=== PATIENT | female | born 1980 | race Caucasian/White ===

== ENCOUNTER 2020-05-02 18:38 | Emergency (ER) | payer OTHER ==
[~2020-05-02] VITALS: Ht 160 cm; Wt 126.0 kg
[2020-05-02] MEDS ORDERED: BREO1INH3 PO (18:59)
[2020-05-02] MEDS ORDERED: SING10TA32 PO (18:59)
[2020-05-02] MEDS ORDERED: PROT1TAB2 PO (18:59)
[2020-05-02] MEDS ORDERED: FLON1SPR NARES (18:59)
[2020-05-02] MEDS ORDERED: NS 1,000 ML IV ONE (19:20)
[2020-05-02] MEDS ORDERED: ACETAMINOPHEN 500 MG TAB PO ONE (19:20)
[2020-05-02] MEDS ORDERED: ISOVUE-370 76% 100ML VIAL As Ordered ONE (20:10)
[2020-05-02 20:11] LABS: BASO # 0.1 10^3/uL (0.0-0.2); BASO % 0.5 % (0.0-1.0); EOS # 0.1 10^3/uL (0.0-0.5); EOS % 0.5 % (0.0-3.0); HEMATOCRIT 34.4 % (36.0-47.0); HEMOGLOBIN 10.3 g/dl (12.0-15.5); LYMPH # 2.3 10^3/uL (1.5-5.0); LYMPH % 13.7 % (24.0-44.0); MEAN CORPUSCULAR HEMOGLOBIN 22.3 pg (27.0-33.0); MEAN CORPUSCULAR HGB CONC 29.9 g/dl (32.0-36.5); MEAN CORPUSCULAR VOLUME 74.5 fl (80.0-96.0); MONO # 0.7 10^3/uL (0.0-0.8); MONO % 4.4 % (2.0-8.0); NEUTROPHILS # 13.4 10^3/uL (1.5-8.5); NEUTROPHILS % 80.4 % (36.0-66.0); PLATELET COUNT, AUTOMATED 454 10^3/uL (150-450); RED BLOOD COUNT 4.62 10^6/uL (4.00-5.40); WHITE BLOOD COUNT 16.7 10^3/uL (4.0-10.0)
[2020-05-02] MEDS ORDERED: MORPHINE 4 MG/ML 1ML VIAL/SYRINGE (J2270) IV ONE ×2 (20:30→21:45)
[2020-05-02 20:35] LABS: ALBUMIN 3.3 GM/DL (3.2-5.2); ALT/SGPT 16 U/L (12-78); BILIRUBIN,DIRECT < 0.1 MG/DL (0.0-0.2); BILIRUBIN,TOTAL 0.2 MG/DL (0.2-1.0); C REACTIVE PROTEIN QUANTITATIV 1.57 MG/DL (0.00-0.30); TOTAL PROTEIN 6.7 GM/DL (6.4-8.2)
--- NOTE | 2020-05-02 21:24 | REPVR ---
PROCEDURE INFORMATION: Exam: CT Abdomen And Pelvis With Contrast Exam date and time: 05/02/2020 8:13 PM Age: 39 years old Clinical indication: Pain; Other: Low back; Additional info: [facility] yest, RO abscess TECHNIQUE: Imaging protocol: Computed tomography of the abdomen and pelvis with contrast. Radiation optimization: All CT scans at this facility use at least one of these dose optimization techniques: automated exposure control; mA and/or kV adjustment per patient size (includes targeted exams where dose is matched to clinical indication); or iterative reconstruction. Contrast material: ISOVUE 370; Contrast volume: 100 ml; Contrast route: INTRAVENOUS (IV); COMPARISON: No relevant prior studies available. FINDINGS: Liver: Normal. No mass. Gallbladder and bile ducts: Normal. No calcified stones. No ductal dilation. Pancreas: Normal. No ductal dilation. Spleen: Normal. No splenomegaly. Adrenal glands: Normal. No mass. Kidneys and ureters: Nonobstructing calyceal stone in the right kidney. No other urinary tract calculi. No hydronephrosis or renal masses. Stomach and bowel: Changes from prior bariatric surgery are noted. Colon and small bowel are unremarkable. Appendix: No evidence of appendicitis. Intraperitoneal space: Unremarkable. No free air. No significant fluid collection. Vasculature: Unremarkable. No abdominal aortic aneurysm. Lymph nodes: Unremarkable. No enlarged lymph nodes. Urinary bladder: Unremarkable as visualized. Reproductive: There is an IUD in the uterus. Uterus and adnexa are unremarkable. Bones/joints: There are degenerative changes in the spine and pelvis. Soft tissues: Unremarkable. IMPRESSION: 1. No acute findings. 2. Nonobstructing calyceal stone in the right kidney. No hydronephrosis. Electronically signed by: Fredis Guerra On 05/02/2020 21:25:05 PM
[2020-05-02 21:26] LABS: ERYTHROCYTE SEDIMENTATION RATE 44 mm/hr (0-20)
[2020-05-02] MEDS ORDERED: PERC5TAB12 PO (21:48)
[2020-05-02] MEDS ORDERED: OXYCODONE/APAP 5MG/325MG(BULK FOR ED) 1 TABLET PO ONE (21:50)
[2020-05-02 22:13] VITALS: BP 146/90
== END 2020-05-02 22:15 | disposition home or self-care (01) ==
LOC: M ED 18:38
DX: G89.29 Other chronic pain (principal); M54.5 Low back pain; N20.0 Calculus of kidney; I10 Essential (primary) hypertension; D64.9 Anemia, unspecified; J45.909 Unspecified asthma, uncomplicated; K21.9 Gastro-esophageal reflux disease without esophagitis; N80.0 Endometriosis of uterus; Z88.8 Allergy status to other drugs, medicaments and biological substances; Z79.899 Other long term (current) drug therapy
CPT/HCPCS: 74177; 80047; 80076; 81001; 83605; 84702; 85025; 85652; 86140; 87040; 96361; 96374; 96376; 99284; J2270; Q9967

== ENCOUNTER → 2021-01-23 | Outpatient (CLI) | payer OTHER ==
[~2021-01-23] MED LIST: ACET1TAB55 PO; BREO1INH3 PO; FAMO40TA3 PO; FERR325T3 PO; FLON1SPR NARES; IBUP80TA PO; OXYC-517 PO; PERC5TAB12 PO; PREG100CA PO; PROT1TAB2 PO; SING10TA32 PO; TREL1AER IN
[2021-01-23 16:57] LABS: BASO # 0.1 10^3/uL (0.0-0.2); BASO % 1.1 % (0.0-1.0); EOS # 0.2 10^3/uL (0.0-0.5); EOS % 1.7 % (0.0-3.0); HEMATOCRIT 36.4 % (36.0-47.0); HEMOGLOBIN 10.7 g/dl (12.0-15.5); LYMPH % 22.8 % (24.0-44.0); MEAN CORPUSCULAR HEMOGLOBIN 21.1 pg (27.0-33.0); MEAN CORPUSCULAR HGB CONC 29.4 g/dl (32.0-36.5); MEAN CORPUSCULAR VOLUME 71.7 fl (80.0-96.0); MONO % 7.2 % (2.0-8.0); NEUTROPHILS # 8.8 10^3/uL (1.5-8.5); NEUTROPHILS % 66.8 % (36.0-66.0); PLATELET COUNT, AUTOMATED 473 10^3/uL (150-450); RED BLOOD COUNT 5.08 10^6/uL (4.00-5.40); WHITE BLOOD COUNT 13.2 10^3/uL (4.0-10.0)
== END ==
LOC: M LAB 16:24
PROVIDERS: ATTEND Physician Assistant
DX: R06.00 Dyspnea, unspecified (principal)

== ENCOUNTER 2021-02-19 08:14 | Inpatient (IN) | payer OTHER ==
[~2021-02-19] VITALS: Ht 160 cm; Wt 133.9 kg
[~2021-02-19 08:14] MED LIST changes: -ACET1TAB55 PO; -IBUP80TA PO; +LR 1,000 ML IV ONE; -OXYC-517 PO; +ceFAZolin SOD 1 GM in D5W MINI-BAG PLUS 50 ML IV ONE; +ceFAZolin SOD 2 GM in IV 1 EA IV ONE
[2021-02-19] MEDS ORDERED: ENOXAPARIN 40MG/0.4ML SYRINGE (J1650 PER 10MG) SC SCH (09:00)
[2021-02-19] MEDS ORDERED: ROCURONIUM BROMIDE 50 MG/5 ML VIAL As Ordered ONE ×3 (09:02→15:39)
[2021-02-19] MEDS ORDERED: propofoL 200 MG/20 ML VIAL As Ordered ONE (09:02)
[2021-02-19] MEDS ORDERED: fentaNYL 250 MCG/5 ML INJECTION (J3010) As Ordered ONE (09:02)
[2021-02-19] MEDS ORDERED: LIDOCAINE 2% 100MG/5ML SDV (FOR ANES.) As Ordered ONE (09:02)
[2021-02-19] MEDS ORDERED: ONDANSETRON 4MG/2ML VIAL As Ordered ONE (09:02)
[2021-02-19] MEDS ORDERED: dexameTHASONE 4 MG/ML 1ML VIAL (J1100 PER 1MG) As Ordered ONE (09:02)
[2021-02-19] MEDS ORDERED: MIDAZOLAM INJ 2MG/2ML VIAL (J2250 PER 1MG) As Ordered ONE (09:02)
[2021-02-19] MEDS ORDERED: KETOROLAC 60MG 2ML VIAL As Ordered ONE ×2 (09:02→16:20)
[2021-02-19 09:06] LABS: HEMATOCRIT 32.9 % (36.0-47.0); HEMOGLOBIN 9.7 g/dl (12.0-15.5); MEAN CORPUSCULAR HGB CONC 29.5 g/dl (32.0-36.5); MEAN CORPUSCULAR VOLUME 71.1 fl (80.0-96.0); PLATELET COUNT, AUTOMATED 420 10^3/uL (150-450); RED BLOOD COUNT 4.63 10^6/uL (4.00-5.40); WHITE BLOOD COUNT 10.4 10^3/uL (4.0-10.0)
[2021-02-19] MEDS ORDERED: ENOXAPARIN 40MG/0.4ML SYRINGE (J1650 PER 10MG) SC ONE (10:00)
[2021-02-19] MEDS ORDERED: ACETAMINOPHEN 500 MG TAB PO ONE (11:40)
[2021-02-19] MEDS ORDERED: BUPIVACAINE HCL 0.5% 30 ML VIAL As Ordered ONE (11:50)
[2021-02-19] MEDS ORDERED: BUPIVACAINE HCL 0.25% 30ML VIAL As Ordered ONE (11:50)
[2021-02-19] MEDS ORDERED: PHENYLephrine 500MCG 5ML (100MCG/ML) SYRINGE As Ordered ONE (13:20)
[2021-02-19] MEDS ORDERED: SUGAMMADEX SODIUM 500 MG/5 ML VIAL (BRIDION) As Ordered ONE (13:26)
[2021-02-19] MEDS ORDERED: HYDROmorphone HCL 2 MG/ML 1ML VIAL As Ordered ONE ×2 (13:26→17:28)
[2021-02-19] MEDS ORDERED: METOCLOPRAMIDE INJ 10MG/2ML VIAL (J2765 PER 1) As Ordered ONE (13:27)
[2021-02-19] MEDS ORDERED: ePHEDrine SULFATE 25 MG/5 ML(5MG/ML) SYRINGE As Ordered ONE (14:20)
[2021-02-19] MEDS ORDERED: FLUORESCEIN 10% (100MG/ML) 5 ML VIAL As Ordered ONE (14:40)
[2021-02-19] MEDS ORDERED: PROMETHAZINE 25 MG TAB PO PRN (16:05)
[2021-02-19] MEDS ORDERED: SIMETHICONE 80MG CHEW TAB PO PRN (16:05)
[2021-02-19] MEDS ORDERED: ALBUTEROL 90 MCG/ACT 8GM HFA INHALER INH PRN (16:05)
[2021-02-19] MEDS ORDERED: LR 1,000 ML IV SCH ×2 (16:05→18:25)
[2021-02-19] MEDS ORDERED: ONDANSETRON 4 MG ORAL DISINTEGRATING TAB PO PRN (16:05)
[2021-02-19] MEDS ORDERED: traMADol 50 MG TAB PO PRN (16:05)
[2021-02-19] MEDS ORDERED: NALOXONE INJ 0.4MG/1ML VIAL (J2310 PER 1MG) As Ordered ONE (16:12)
[2021-02-19] MEDS ORDERED: fentaNYL 100 MCG/2 ML INJECTION (J3010) As Ordered ONE (16:39)
--- NOTE | 2021-02-19 17:04 | ROOPDOC ---
[facility] Report Of Operation Report of Operation DATE OF PROCEDURE: 02/19/21 PREPROCEDURE DIAGNOSES: abnormal uterine bleeding. POSTPROCEDURE DIAGNOSES: acquired absence of uterus, cervix and bilateral uterine tubes PROCEDURE PERFORMED: total laparoscopic hysterectomy, bilateral salpingectomy, cystoscopy SURGEON: Renetta Mays DO KETTLE LOADER: Adolfo Meadows DO ANESTHESIA: General ESTIMATED BLOOD LOSS: Approximately 150 mL. COMPLICATIONS: none REMARKS: none FINDINGS: omental adhesions superiorly in the abdomen obscuring view of liver and gall bladder, otherwise normal appearing bowel. Normal appearing uterus, tubes and ovaries. Intrauterine device removed at the beginning of the procedure. 1cm apparent fecalith noted free in the abdomen, extruded vaginally with delivery of uterus, sent to pathology for analysis. SPECIMENS REMOVED: - uterus, cervix and bilateral fallopian tubes - abdominal artifact - intrauterine device PROCEDURE NOTE: see below DESCRIPTION OF PROCEDURE: After obtaining informed consent the patient was brought to the operating suite and prepped/draped in the usual fashion. A timeout was called and the patient name, date of and procedure to be performed were verified. A speculum was placed vaginally. IUD strings were visualized and the IUD gently pulled free. A tenaculum was affixed to the anterior lip of the cervix. A uterine sound was passed measuring 10cm. The cervix was visually inpected and a a large V-Care was selected. The V-Care manipulator entered the cervix easily to a depth of 10cm and the intrauterine balloon was inflated. The colpotomy ring was then secured to the cervix with 0-vicryl suture, and the rest of the V-care installation completed. A aguillon urinary catheter was placed. A 5mm infraumbilical incision was made. The peritoneum was entered using direct method with an optical trocar on the first attempt. Once peritoneal entry was verified the abdomen was insufflated to 15mm Hg. An abdominopelvic survey was completed with the findings above. The site directly below the port was inspected with no noted injury. A left side 5mm port was then placed under direct vision and a right sided port placed in the same fashion. A Ligasure Hook was utilised to seal and divide the left uterine tube from the fimbriae to the cornua; there it was transected and removed from the 5mm port. THis was repeated on the right side. The left round ligament was sealed and transected. The anterior leaf of the broad ligament was developed across the anterior of the cervix creating a bladder flap. The right round ligament was sealed and transected with the Ligasure device and the anterior leaf developed to meet the bladder flap. The utero-ovarian vessels were sealed and transected on both sides, then the posterior leaves were developed to skeletonize the uterine vessels on both sides. The right and then left uterine vessels were then sealed and transected followed by sealing and transection of the cardinal ligaments bilaterally. The colpotomy was started using monopolar energy and carried around the circumference of the colpotomy ring. The uterus was then delivered vaginally along with an abdominal artifact which was sent to pathology. The cuff was closed vaginally with running 0-vicryl; due to body habitus and vaginal anatomy this was somewhat difficult to visualize. The vaginal cuff was then oversewn laparoscopically with 3-0 v-lock suture. Hemostasis was noted. Cystoscopy was performed which revealed no apparent bladder injuries and cinthya ateral ureteral jets. The Aguillon catheter was replaced. Floseal was then applied laparoscopically to the vaginal cuff and bilateral pedicles. Great hemostasis was noted. The right and left ports were removed under direct vision followed by the umbilical port. The abdomen was desufflated. The incisions were closed with 4-0 monocryl and skin glue. All instruments were removed from the vagina. All counts were correct. I left the room with the patient in good condition. Renetta Mays, RENETTA LEE DO Feb 19, 2021 16:29
[2021-02-19] MEDS: traMADol 50 MG TAB PO PRN (17:16)
[2021-02-19 18:10] VITALS: BP 127/77
[2021-02-19] MEDS ORDERED: ONDANSETRON 4MG/2ML VIAL IV PRN (18:25)
[2021-02-19] MEDS ORDERED: oxyCODONE 5MG TAB PO PRN (18:25)
[2021-02-19] MEDS ORDERED: fentaNYL 100 MCG/2 ML INJECTION (J3010) IV PRN (18:25)
[2021-02-19] MEDS ORDERED: HYDROMORPHONE HCL 0.5 MG/ 0.5 ML SYRINGE (J1170 PER 1) IV PRN (18:25)
[2021-02-19 18:45] VITALS: BP 128/78
[2021-02-19] MEDS: ACETAMINOPHEN 500 MG TAB PO SCH ×2 (18:49→23:52)
[2021-02-19] MEDS: ADVAIR HFA 115/21MCG INHALER INH SCH (20:00)
[2021-02-19 21:00] VITALS: BP 125/77
[2021-02-19] MEDS ORDERED: FAMOTIDINE 20 MG TAB PO SCH (21:00)
[2021-02-19] MEDS ORDERED: MONTELUKAST 10 MG TAB PO SCH (21:00)
[2021-02-19 22:00] VITALS: BP 127/77
[2021-02-19 23:00] VITALS: BP 126/84
[2021-02-19] MEDS: IBUPROFEN 800 MG TAB PO SCH (23:52)
[2021-02-19] MEDS: ENOXAPARIN 40MG/0.4ML SYRINGE (J1650 PER 10MG) SC SCH (23:53)
[2021-02-20] VITALS: BP 135/74
[2021-02-20] MEDS ORDERED: UNRESOLVED CLARIFICATION ENTRY XX SCH (00:01)
[2021-02-20 04:00] VITALS: BP 138/78
[2021-02-20] MEDS: ACETAMINOPHEN 500 MG TAB PO SCH ×2 (05:48→12:08)
[2021-02-20 06:05] LABS: BASO % 0.1 % (0.0-1.0); HEMATOCRIT 27.2 % (36.0-47.0); HEMOGLOBIN 7.9 g/dl (12.0-15.5); LYMPH # 1.2 10^3/uL (1.5-5.0); MEAN CORPUSCULAR HEMOGLOBIN 20.9 pg (27.0-33.0); MONO # 0.7 10^3/uL (0.0-0.8); MONO % 4.9 % (2.0-8.0); NEUTROPHILS # 11.6 10^3/uL (1.5-8.5); NEUTROPHILS % 85.6 % (36.0-66.0); PLATELET COUNT, AUTOMATED 367 10^3/uL (150-450); RED BLOOD COUNT 3.78 10^6/uL (4.00-5.40); WHITE BLOOD COUNT 13.6 10^3/uL (4.0-10.0)
[2021-02-20] MEDS ORDERED: PANTOPRAZOLE 40MG TAB (PROTONIX) PO SCH (07:30)
[2021-02-20] MEDS: IBUPROFEN 800 MG TAB PO SCH (07:52)
[2021-02-20] MEDS: traMADol 50 MG TAB PO PRN (07:53)
[2021-02-20] MEDS: ADVAIR HFA 115/21MCG INHALER INH SCH (08:00)
--- NOTE | 2021-02-20 08:51 | IPNPDOC ---
Text Note Date of Service The patient was seen on 02/20/21. NOTE Adelaide Dotson was seen in her room, sitting up in her chair ready to eat breakfast which she had just ordered. She reports 7/10 abdominal pain which she has had since awakening from surgery. She has taken her scheduled acetaminophen, ibuprofen and tramadol; last dose of Tramadol 100mg around 0800 this morning. Otherwise she feels well and reports ambulating, eating, drinking, passing gas, urinating without issue. She reports receiving her lovenox and using her incentive spirometer. She denies fevers, chills, nausea, vomiting, chest pain, shortness of breath, palpitations, lightheadedness, dizziness, vaginal bleeding. VItals this morning: BP 138/78; P 90; R 18; T98.5. While sleeping she had 2L nasal cannula, not needed when awake. General: alert and oriented. No acute distress, does appear uncomfortable at times Lungs: ctab CV: RRR Abdomen: soft, non distended, mild tenderness to palpation in lower midline, no guarding or rebound. Positive bowel sounds. Negative calf tenderness bilaterally. Labs: Hgb 7.9 this morning, from 9.7 yesterday preop. Appropriate drop. A/P: Doing well postoperatively other than pain. She does not have any signs or symptoms of internal hemorrhage; the location of the pain is lower midlin abdomen; the location of most of the operating yesterday. She states that in the past tramadol has not really worked for her. She states that oxycodone has worked in the past so we will try that starting at 1200. I will check in with her this afternoon and see how she is doing. Possible afternoon or evening discharge today. She is meeting all other postoperative milestones. Lorenzo Mays, DO VS,Adonaye, I+O VS, Adonaye, I+O Laboratory Tests 02/19/21 08:44 02/20/21 05:54 Vital Signs Date Time Temp Pulse Resp B/P (MAP) Pulse Ox O2 Delivery O2 Flow Rate FiO2 02/20/21 07:53 17 02/20/21 04:00 98.5 90 138/78 (98) 96 Nasal Cannula 2.0 I&O- Last 24 Hours up to 6 AM 02/20/21 06:00 Intake Total 4075 ml Output Total 1400 ml Balance 2675 ml LORENZO MAYS DO Feb 20, 2021 08:51
[2021-02-20] MEDS ORDERED: INFLUENZA QUADRIVALENT PF VACCINE 0.5ML SYRINGE IM ONE (09:00)
[2021-02-20] MEDS ORDERED: oxyCODONE 5MG TAB PO PRN ×2 (12:00)
[2021-02-20] MEDS: ENOXAPARIN 40MG/0.4ML SYRINGE (J1650 PER 10MG) SC SCH (12:08)
[2021-02-20 14:00] VITALS: BP 124/76
[2021-02-20] MEDS ORDERED: IBUP80TA PO (15:55)
[2021-02-20] MEDS ORDERED: OXYC-517 PO (15:55)
[2021-02-20] MEDS ORDERED: ACET1TAB55 PO (15:56)
--- NOTE | 2021-02-20 19:15 | DS.PDOC ---
Discharge Summary General Date of Admission Feb 19, 2021 at 08:14 Date of Discharge 02/20/21 Attending Physician: RENETTA INTERIANO DO Discharge Summary PROCEDURES PERFORMED DURING STAY: total laparoscopic hysterectomy and bilateral salpingectomy ADMITTING DIAGNOSES: 1. abnormal uterine bleeding DISCHARGE DIAGNOSES: 1. acquired absence of uterus, cervix and bilateral uterine tubes COMPLICATIONS/CHIEF COMPLAINT: Abnormal Uterine Bleeding. HISTORY OF PRESENT ILLNESS: scheduled surgery HOSPITAL COURSE: uneventful surgery and postoperative course DISCHARGE MEDICATIONS: Please see below. ALLERGIES: Please see below. PHYSICAL EXAMINATION ON DISCHARGE: VITAL SIGNS: Please see below. Adelaide Dotson was seen in her room, sitting up in her chair ready to eat breakfast which she had just ordered. She reports 7/10 abdominal pain which she has had since awakening from surgery. She has taken her scheduled acetaminophen, ibuprofen and tramadol; last dose of Tramadol 100mg around 0800 this morning. Otherwise she feels well and reports ambulating, eating, drinking, passing gas, urinating without issue. She reports receiving her lovenox and using her incentive spirometer. She denies fevers, chills, nausea, vomiting, chest pain, shortness of breath, palpitations, lightheadedness, dizziness, vaginal bleeding. VItals this morning: BP 138/78; P 90; R 18; T98.5. While sleeping she had 2L nasal cannula, not needed when awake. General: alert and oriented. No acute distress, does appear uncomfortable at times Lungs: ctab CV: RRR Abdomen: soft, non distended, mild tenderness to palpation in lower midline, no guarding or rebound. Positive bowel sounds. Negative calf tenderness bilaterally. Labs: Hgb 7.9 this morning, from 9.7 yesterday preop. Appropriate drop. A/P: Doing well postoperatively other than pain. She does not have any signs or symptoms of internal hemorrhage; the location of the pain is lower midlin abdomen; the location of most of the operating yesterday. She states that in the past tramadol has not really worked for her. She states that oxycodone has worked in the past so we will try that starting at 1200. I will check in with her this afternoon and see how she is doing. Possible afternoon or evening discharge today. She is meeting all other postoperative milestones. LABORATORY DATA: Please see below. IMAGING: none PROGNOSIS: Good ACTIVITY: [As tolerated]. DIET: Resume prehospital DISCHARGE PLAN: Home DISPOSITION: Home. DISCHARGE INSTRUCTIONS: 1. See discharge patient instructions ITEMS TO FOLLOWUP ON ON OUTPATIENT: 1. 2 weeks incisions check at [facility] DISCHARGE CONDITION: Stable. TIME SPENT ON DISCHARGE: 30 minutes. Vital Signs/I&Os Vital Signs Date Time Temp Pulse Resp B/P (MAP) Pulse Ox O2 Delivery O2 Flow Rate FiO2 02/20/21 14:00 98.5 94 13 124/76 (92) 94 Room Air 02/20/21 04:00 2.0 I&O- Last 24 Hours up to 6 AM 02/20/21 05:59 Intake Total 4075 ml Output Total 1400 ml Balance 2675 ml Laboratory Data Labs 24H Laboratory Tests 2 02/20/21 05:54: Immature Granulocyte % (Auto) 0.4, Neutrophils (%) (Auto) 85.6H, Lymphocytes (%) (Auto) 9.0L, Monocytes (%) (Auto) 4.9, Eosinophils (%) (Auto) 0.0, Basophils (%) (Auto) 0.1, Neutrophils # (Auto) 11.6H, Lymphocytes # (Auto) 1.2L, Monocytes # (Auto) 0.7, Eosinophils # (Auto) 0.0, Basophils # (Auto) 0.0, Nucleated Red Blood Cells % (auto) 0.0 CBC/BMP Laboratory Tests 02/20/21 05:54 Discharge Medications Scheduled Acetaminophen (Acetaminophen) 325 Mg Tablet, 3 TAB PO Q6H Take regularly for the first week after surgery. Famotidine (Famotidine) 40 Mg Tablet, 40 MG PO DAILY, (Reported) Ferrous Sulfate (Ferrous Sulfate) 325 Mg Tablet.dr, 325 MG PO DAILY, (Reported) Fluticasone/Umeclidin/Vilanter (Trelegy Ellipta 100-62.5-25) 1 Each Blst.w.dev, 1 AER IN DAILY, (Reported) Ibuprofen (Ibuprofen) 800 Mg Tablet, 800 MG PO Q8H Take regularly as scheduled for the first week after surgery. Take ibuprofen with meals. Montelukast Sodium (Singulair) 10 Mg Tablet, 10 MG PO DAILY, (Reported) Pantoprazole Sodium (Protonix) 40 Mg Tablet.dr, 1 TAB PO DAILY, (Reported) Pregabalin (Lyrica) 100 Mg Capsule, 100 MG PO BID, (Reported) Scheduled PRN Oxycodone HCl (Oxycodone HCl) 5 Mg Tablet, 10 MG PO Q6H PRN for SEVERE PAIN (PS 8-10) Take only as needed for severe pain not controlled by acetaminophen and ibuprofen. Allergies Coded Allergies: gabapentin (Verified Adverse Reaction, Intermediate, hyperstimulis, 02/19/21) meperidine (Verified Adverse Reaction, Unknown, vomiting, 02/19/21) RENETTA INTERIANO DO Feb 20, 2021 16:02
== END 2021-02-20 17:05 | disposition home or self-care (01) | DRG 743 ==
LOC: M OR 08:14 → M MS5PR 18:05
PROVIDERS: ADMIT Obstetrics & Gynecology; ATTEND Obstetrics & Gynecology
PROC: 0UT94ZZ Resection of Uterus, Percutaneous Endoscopic Approach (ICD-10-PCS; principal; 2021-02-19 10:10)
PROC: 0UTC4ZZ Resection of Cervix, Percutaneous Endoscopic Approach (ICD-10-PCS; 2021-02-19 10:10)
PROC: 0UT74ZZ Resection of Bilateral Fallopian Tubes, Percutaneous Endoscopic Approach (ICD-10-PCS; 2021-02-19 10:10)
DX: N93.9 Abnormal uterine and vaginal bleeding, unspecified (principal); J45.909 Unspecified asthma, uncomplicated; Z79.899 Other long term (current) drug therapy

== ENCOUNTER 2021-05-22 10:17 | Emergency (ER) | payer OTHER ==
[~2021-05-22] VITALS: Ht 160 cm; Wt 135.5 kg
[~2021-05-22 10:17] MED LIST changes: +ACET1TAB55 PO; +IBUP80TA PO; -LR 1,000 ML IV ONE; +OXYC-517 PO; -ceFAZolin SOD 1 GM in D5W MINI-BAG PLUS 50 ML IV ONE; -ceFAZolin SOD 2 GM in IV 1 EA IV ONE
[2021-05-22] MEDS ORDERED: predniSONE 20 MG TAB PO ONE (11:35)
[2021-05-22] MEDS ORDERED: AMOX500T PO (12:06)
[2021-05-22] MEDS ORDERED: PRED20TA PO (12:06)
[2021-05-22 12:25] VITALS: BP 162/102
== END 2021-05-22 12:47 | disposition home or self-care (01) ==
LOC: M ED 10:17
DX: J20.9 Acute bronchitis, unspecified (principal); J45.901 Unspecified asthma with (acute) exacerbation; G43.909 Migraine, unspecified, not intractable, without status migrainosus; K21.9 Gastro-esophageal reflux disease without esophagitis; Z87.442 Personal history of urinary calculi; F43.10 Post-traumatic stress disorder, unspecified; F41.8 Other specified anxiety disorders; F32.A Depression, unspecified; M54.50 Low back pain, unspecified; Z98.84 Bariatric surgery status; Z79.899 Other long term (current) drug therapy; Z88.6 Allergy status to analgesic agent
CPT/HCPCS: 71046; 87428; 99283; J7512